=== PATIENT | male | born 1980 | race Asian ===

== ENCOUNTER 2019-11-13 09:50 | Emergency (ER) | payer OTHER ==
[~2019-11-13] VITALS: Ht 185.4 cm; Wt 95.3 kg
[2019-11-13 09:53] VITALS: BP 152/112
[2019-11-13 11:48] VITALS: TEMP 98.2
== END 2019-11-13 11:48 | disposition home or self-care (01) ==
LOC: ED 09:50
DX: N45.1 Epididymitis (principal)
CPT/HCPCS: 99283

== ENCOUNTER 2021-04-08 14:44 | Emergency (ER) | payer OTHER ==
[~2021-04-08] VITALS: Ht 182.9 cm; Wt 104.3 kg
[2021-04-08 15:00] VITALS: TEMP 98.1
[2021-04-08 16:25] LABS: PLATELET COUNT 396 K/uL (142-355)
[2021-04-08 16:46] LABS: POTASSIUM 4.3 mmol/L (3.6-5.2)
[2021-04-08 19:05] VITALS: BP 190/82
== END 2021-04-08 19:05 | disposition home or self-care (01) ==
LOC: ED 14:44
PROVIDERS: Emergency Medicine Emergency Medical Services
DX: I10 Essential (primary) hypertension (principal)
CPT/HCPCS: 80053; 85027; 96374; 96375; 99284; J0360; J3490; Q9963

== ENCOUNTER 2022-12-25 11:28 | Emergency (ER) | payer OTHER ==
[~2022-12-25] VITALS: Ht 180.3 cm; Wt 113.4 kg
[2022-12-25 14:52] VITALS: BP 131/75; TEMP 98.9
== END 2022-12-25 15:00 | disposition home or self-care (01) ==
LOC: ED 11:28
PROVIDERS: Emergency Medicine
DX: N45.3 Epididymo-orchitis (principal); K76.89 Other specified diseases of liver
CPT/HCPCS: 36415; 80048; 96374; 99284; J1885; Q9963